=== PATIENT | male | born 1985 | race Two or more races ===

== ENCOUNTER 2023-07-17 12:14 | Emergency (ER) | payer MEDICAID, OTHER ==
[~2023-07-17] VITALS: Ht 180.3 cm; Wt 106.3 kg
[2023-07-17] MEDS ORDERED: AUG875T PO (13:34)
[2023-07-17] MEDS: TETANUS-DIPTH-ACEL PERTUSSIS 0.5ML SYR Tdap IM ONE (13:44)
[2023-07-17] MEDS: IBUPROFEN 600 MG TAB PO ONE (13:55)
[2023-07-17 13:56] VITALS: BP 148/90; PULSE 65; RESP 18; O2SAT 96
== END 2023-07-17 14:28 | disposition home or self-care (01) ==
LOC: ER 12:14
DX: S51.811A Laceration without foreign body of right forearm, initial encounter (principal); S51.851A Open bite of right forearm, initial encounter; W54.0XXA Bitten by dog, initial encounter; Y93.89 Activity, other specified; Y92.89 Other specified places as the place of occurrence of the external cause; Y99.8 Other external cause status
CPT/HCPCS: 90471; 90715